=== PATIENT | female | born 1940 | race African-American/Black ===

== ENCOUNTER 2024-04-23 15:52 | Emergency (ER) | payer MEDICARE ==
[~2024-04-23] VITALS: Ht 167.6 cm; Wt 80.0 kg
[2024-04-23 15:54] VITALS: O2SAT 98
[2024-04-23 17:04] LABS: BASOPHILS % 0.2 % (0.0-2.0); EOSINOPHILS % 1.6 % (0.0-5.0); LYMPHOCYTES % 22.2 % (20.0-50.0); MEAN CORPUSCULAR HEMOGLOBIN 30.5 pg (28.0-32.0); MEAN CORPUSCULAR HGB CONC 32.5 g/dL (31.0-37.0); MEAN CORPUSCULAR VOLUME 93.9 fL (81.0-99.0); MEAN PLATELET VOLUME 7.2 fl (7.4-10.4); PLATELET 302 x1000/uL (130-400); RED BLOOD CELL COUNT 3.94 mill/uL (4.2-5.4); RED CELL DISTRIBUTION WIDTH 14.4 % (11.6-14.6); WHITE BLOOD COUNT 7.9 x1000/uL (4.5-11.0)
[2024-04-23 17:12] LABS: CHLORIDE 106 mEq/L (98-107); POTASSIUM 4.2 mEq/L (3.5-5.1); SODIUM 141 mEq/L (136-145)
[2024-04-23 17:13] LABS: CALCIUM 9.4 mg/dL (8.7-10.4); CARBON DIOXIDE 29 mEq/L (21-32)
[2024-04-23 17:18] LABS: CREATININE 0.8 mg/dL (0.6-1.0); GLUCOSE 143 mg/dL (70-105); INR 0.9; PROTHROMBIN TIME 10.5 sec (9.6-11.0); UREA NITROGEN BLOOD 12 mg/dL (9-23)
[2024-04-23 17:20] VITALS: BP 158/79; PULSE 79; RESP 20; TEMP 37.1; O2SAT 98
[2024-04-23 17:20] LABS: ALANINE AMINOTRANSFERASE 19 IU/L (10-49); ALBUMIN 4.1 g/dL (3.2-4.8); ASPARTATE AMINOTRANSFERASE 23 IU/L (<34); BILIRUBIN TOTAL 0.4 mg/dL (0.1-1.0); PROTEIN TOTAL 7.1 g/dL (6.0-8.3)
[2024-04-23 17:22] LABS: BILIRUBIN DIRECT < 0.1 mg/dL (<=3.0); TROPONIN I HIGH SENSITIVITY < 4 ng/L (3.0-34)
[2024-04-23] MEDS ORDERED: AZIT250T12 MT (18:41)
[2024-04-23] MEDS ORDERED: AMOX1TAB16 MT (18:41)
== END 2024-04-23 18:54 | disposition home or self-care (01) ==
LOC: ER 15:52
DX: J18.9 Pneumonia, unspecified organism (principal); R55 Syncope and collapse; E11.9 Type 2 diabetes mellitus without complications; I10 Essential (primary) hypertension
CPT/HCPCS: 36415; 71045; 80048; 80076; 83880; 84484; 85025; 93005; 99285